=== PATIENT | female | born 1985 | race American Indian/Alaskan Native ===

== ENCOUNTER 2019-04-21 00:05 | Emergency (ER) | payer SELFPAY ==
[2019-04-21 00:30] VITALS: BP 118/70
[2019-04-21] MEDS ORDERED: NORCO 5/325 PO ONE (01:04)
[2019-04-21] MEDS ORDERED: IBUPROFEN PO ONE (01:04)
--- NOTE | 2019-04-21 01:16 | Emergency Department Report ---
HPI - General Chief Complaint: Sore Throat Time Seen by Provider: 04/21/19 00:56 - HPI HPI: Room 45 The patient is a 32-year-old female presenting with a chief complaint sore throat and cough. The patient says she awakened this morning with a headache sore throat and a dry cough. She states as the day progressed, her symptoms worsened. The patient states her cough is occasionally productive of some blood mixed with sputum. Patient states she has not had a fever she has midline back pain in addition to her sore throat. Patient denies dysuria or hematuria. Patient denies sick contacts. Patient gives her pain score of 9/10 ED Past Medical Hx - Past Medical History Previous Medical History?: Yes Hx Asthma: Yes - Surgical History Past Surgical History?: No - Family History Family history: no significant - Social History Smoking Status: Unknown if ever smoked Substance Use Type: None - Medications Home Medications: Home Medications Medication Instructions Recorded Confirmed Last Taken Type Amoxicillin [Amoxicillin TAB] 875 mg PO BID #14 tablet 04/21/19 Unknown Rx Benzonatate [Tessalon Perles] 100 mg PO Q8HR #30 capsule 04/21/19 Unknown Rx Ibuprofen [Motrin 800 MG tab] 800 mg PO Q8HR PRN #20 tablet 04/21/19 Unknown Rx traMADol [Ultram] 50 mg PO Q6HR PRN #10 tablet 04/21/19 Unknown Rx ED Review of Systems ROS: Stated complaint: SORE THROAT/BACK PAIN Other details as noted in HPI Constitutional: denies: fever Eyes: denies: eye pain ENT: throat pain Respiratory: cough Cardiovascular: denies: chest pain Endocrine: no symptoms reported Gastrointestinal: denies: abdominal pain Genitourinary: denies: dysuria, hematuria Musculoskeletal: back pain Neurological: denies: headache Physical Exam - Physical Exam Vital Signs: Vital Signs 04/21/19 00:28 Temperature 99.2 F Pulse Rate 100 H Respiratory 16 Rate Blood Pressure 118/70 O2 Sat by Pulse 100 Oximetry Physical Exam: GENERAL: The patient is well-developed well-nourished female lying on stretcher not appearing to be in acute distress. [] HEENT: Normocephalic. Atraumatic. Extraocular motions are intact. Patient has moist mucous membranes. Tonsillar crypts seen bilaterally, no exudate seen. Uvula midline NECK: Supple. No meningitic signs are noted. There is no nuchal rigidity CHEST/LUNGS: Clear to auscultation. There is no respiratory distress noted. HEART/CARDIOVASCULAR: Regular. There is no tachycardia. There is no gallop rub or murmur. ABDOMEN: Abdomen is soft, nontender. Patient has normal bowel sounds. There is no abdominal distention. SKIN: There is no rash. There is no edema. There is no diaphoresis. NEURO: The patient is awake, alert, and oriented. The patient is cooperative. The patient has normal speech MUSCULOSKELETAL: There is no evidence of acute injury. ED Course Vital Signs 04/21/19 00:28 Temperature 99.2 F Pulse Rate 100 H Respiratory 16 Rate Blood Pressure 118/70 O2 Sat by Pulse 100 Oximetry ED Medical Decision Making - Radiology Data Radiology results: image reviewed (chest x-ray, lateral soft tissue neck x-ray) interpreted by me: Chest x-ray-no focal infiltrate, no pneumothorax Lateral soft tissue neck x-ray-no prevertebral swelling. No evidence of epig lottitis - Differential Diagnosis bronchitis, pharyngitis, Critical care attestation.: If time is entered above; I have spent that time in minutes in the direct care of this critically ill patient, excluding procedure time. ED Disposition Clinical Impression: Acute bronchitis Disposition: DC-01 TO HOME OR SELFCARE Is pt being admited?: No Does the pt Need Aspirin: No Condition: Stable Instructions: Acute Bronchitis (ED) Prescriptions: Amoxicillin [Amoxicillin TAB] 875 mg PO BID #14 tablet Ibuprofen [Motrin 800 MG tab] 800 mg PO Q8HR PRN #20 tablet PRN Reason: Pain, Moderate (4-6) Benzonatate [Tessalon Perles] 100 mg PO Q8HR #30 capsule traMADol [Ultram] 50 mg PO Q6HR PRN #10 tablet PRN Reason: Pain Referrals: PRIMARY CARE, [Primary Care Provider] - 3-5 Days Time of Disposition: 02:00
--- NOTE | 2019-04-21 02:05 | XRay Report ---
SOFT TISSUE NECK, AP AND LATERAL VIEWS 04/21/2019 INDICATION / CLINICAL INFORMATION: sore throat. COMPARISON: None available. FINDINGS: No prevertebral soft tissue swelling. No abnormal subcutaneous gas collections. The epiglottic contour is normal. Signer Name: Brian Park MD Signed: 04/21/2019 2:01 AM Workstation Name: [id number]
--- NOTE | 2019-04-21 02:06 | XRay Report ---
CHEST 2 VIEWS INDICATION / CLINICAL INFORMATION: cough with occasional hemoptysis. COMPARISON: None available. FINDINGS: SUPPORT DEVICES: None. HEART / MEDIASTINUM: No significant abnormality. LUNGS / PLEURA: No significant pulmonary or pleural abnormality. No pneumothorax. ADDITIONAL FINDINGS: No significant additional findings. IMPRESSION: 1. No acute findings. Signer Name: Brian Park MD Signed: 04/21/2019 2:02 AM Workstation Name: [id number]
== END 2019-04-21 02:24 | disposition home or self-care (01) ==
LOC: ED 00:05
DX: J20.9 Acute bronchitis, unspecified (principal); J45.909 Unspecified asthma, uncomplicated; Z91.018 Allergy to other foods; Z79.899 Other long term (current) drug therapy
CPT/HCPCS: 70360; 71046; 99284

== ENCOUNTER 2020-06-19 17:21 | Emergency (ER) | payer SELFPAY ==
[2020-06-19 18:30] VITALS: BP 120/74
--- NOTE | 2020-06-19 19:01 | Event Note ---
ED Screening Note ED Screening Note: lower abd pain that began earlier today no dysuria no dark urine no dark odor +dysuria +nausea no v/d +burping/gas normal BM yesterday no vaginal discharge or irritation PMHx none no allergies to meds LNMP: 06/07/2020 This initial assessment/diagnostic orders/clinical plan/treatment(s) is/are subject to change based on patients health status, clinical progression and re- assessment by fellow clinical providers in the ED. Further treatment and workup at subsequent clinical providers discretion. Patient/guardian urged not to elope from the ED as their condition may be serious if not clinically assessed and managed. Initial orders include: ua, urine preg
--- NOTE | 2020-06-19 20:56 | Emergency Department Report ---
ED General Adult HPI - General Chief complaint: Abdominal Pain Stated complaint: ABD PAIN/RT SIDE OF FACE HURTS Time Seen by Provider: 06/19/20 18:59 Source: patient Mode of arrival: Ambulatory Limitations: No Limitations - History of Present Illness Initial comments: 35-year-old -[place] female patient presents with complaints of lower abdominal pain that started last night. She describes the pain as sharp and cramping and rates her current pain is 8/10 in severity. She denies any dysuria/hematuria, nausea/vomiting/diarrhea/constipation, fever/chills/sweats, vaginal bleeding, dyspareunia, or vaginal discharge. Patient does admit to urinary frequency. LMP was 05/30/2020 per patient. She admits to history of ovarian cyst. She reports ibuprofen does help with the pain temporarily. - Related Data Previous Rx's Medication Instructions Recorded Last Taken Type Amoxicillin [Amoxicillin TAB] 875 mg PO BID #14 tablet 04/21/19 Unknown Rx Benzonatate [Tessalon Perles] 100 mg PO Q8HR #30 capsule 04/21/19 Unknown Rx traMADoL [Ultram] 50 mg PO Q6HR PRN #10 tablet 04/21/19 Unknown Rx Ibuprofen [Motrin 800 MG tab] 800 mg PO Q8HR PRN #30 tablet 03/21/20 Unknown Rx Lidocaine Viscous 2% 10 ml PO Q4H PRN #120 ml 03/21/20 Unknown Rx Penicillin V Potassium 500 mg PO Q6H #40 tablet 03/21/20 Unknown Rx predniSONE [Deltasone] 40 mg PO QDAY #10 tab 03/21/20 Unknown Rx Naproxen [Naprosyn TAB] 500 mg PO BID PRN #14 tablet 06/19/20 Unknown Rx Allergies Allergy/AdvReac Type Severity Reaction Status Date / Time coconut Allergy Mild Angioedema Verified 06/19/20 18:28 sea salt Allergy Mild Angioedema Uncoded 04/21/19 00:31 ED Review of Systems ROS: Stated complaint: ABD PAIN/RT SIDE OF FACE HURTS Other details as noted in HPI Constitutional: denies: chills, diaphoresis, fever, malaise, weakness Respiratory: denies: cough, shortness of breath Cardiovascular: denies: chest pain Endocrine: denies: excessive sweating Gastrointestinal: abdominal pain. denies: nausea, vomiting, diarrhea, constipation, hematemesis, melena, hematochezia Genitourinary: frequency. denies: urgency, dysuria, hematuria, discharge, abnormal menses, dyspareunia Musculoskeletal: denies: back pain Skin: denies: rash, lesions, change in color Hematological/Lymphatic: denies: swollen glands ED Past Medical Hx - Past Medical History Hx Asthma: Yes - Social History Smoking Status: Never Smoker - Medications Home Medications: Home Medications Medication Instructions Recorded Confirmed Last Taken Type Amoxicillin [Amoxicillin TAB] 875 mg PO BID #14 tablet 04/21/19 Unknown Rx Benzonatate [Tessalon Perles] 100 mg PO Q8HR #30 capsule 04/21/19 Unknown Rx traMADoL [Ultram] 50 mg PO Q6HR PRN #10 tablet 04/21/19 Unknown Rx Ibuprofen [Motrin 800 MG tab] 800 mg PO Q8HR PRN #30 tablet 03/21/20 Unknown Rx Lidocaine Viscous 2% 10 ml PO Q4H PRN #120 ml 03/21/20 Unknown Rx Penicillin V Potassium 500 mg PO Q6H #40 tablet 03/21/20 Unknown Rx predniSONE [Deltasone] 40 mg PO QDAY #10 tab 03/21/20 Unknown Rx Naproxen [Naprosyn TAB] 500 mg PO BID PRN #14 tablet 06/19/20 Unknown Rx ED Physical Exam - General Limitations: No Limitations General appearance: alert, in no apparent distress - Head Head exam: Present: atraumatic, normocephalic - Eye Eye exam: Present: normal appearance. Absent: scleral icterus - Neck Neck exam: Present: normal inspection - Respiratory Respiratory exam: Absent: respiratory distress - Cardiovascular Cardiovascular Exam: Present: regular rate - GI/Abdominal GI/Abdominal exam: Present: soft, normal bowel sounds. Absent: distended, tenderness, guarding, rebound, rigid - Extremities Exam Extremities exam: Present: normal inspection - Back Exam Back exam: Present: normal inspection - Neurological Exam Neurological exam: Present: alert, oriented X3, normal gait - Psychiatric Psychiatric exam: Present: normal affect, normal mood - Skin Skin exam: Present: warm, dry, intact, normal color. Absent: rash ED Course Vital Signs 06/19/20 18:27 Temperature 98.4 F Pulse Rate 75 Respiratory 20 Rate Blood Pressure 120/74 O2 Sat by Pulse 100 Oximetry ED Medical Decision Making - Medical Decision Making 35-year-old -[place] female patient presents with complaints of lower abdominal pain that started last night. She describes the pain as sharp and cramping and rates her current pain is 8/10 in severity. She denies any dysuria/hematuria, nausea/vomiting/diarrhea/constipation, fever/chills/sweats, vaginal bleeding, dyspareunia, or vaginal discharge. Patient does admit to urinary frequency. LMP was 05/30/2020 per patient. She admits to history of ovarian cyst. She reports ibuprofen does help with the pain temporarily. No abdominal tenderness to palpation noted on exam. UA is normal and is negative. Her vitals are normal. She is well-appearing. Suspect possible mittelschmerz. She is stable for discharge home and follow-up with primary care in 2 to 3 days. Discussed signs and symptoms that should prompt immediate ret urn to the emergency department in detail with patient who verbalizes understanding peer Critical care attestation.: If time is entered above; I have spent that time in minutes in the direct care of this critically ill patient, excluding procedure time. ED Disposition Clinical Impression: Lower abdominal pain Disposition: DC-01 TO HOME OR SELFCARE Is pt being admited?: No Condition: Stable Instructions: Abdominal Pain (ED), Abdominal Pain, Adult, Mittelschmerz, Krka-ll-Eccl Prescriptions: Naproxen [Naprosyn TAB] 500 mg PO BID PRN #14 tablet PRN Reason: pain Referrals: PRIMARY CARE, [Primary Care Provider] - 2-3 Days
[2020-06-19 21:16] LABS: HCG Qualitative,Urine Negative (Negative)
[2020-06-19 21:23] LABS: Bilirubin,Urine NEG (Negative); Blood,Urine NEG (Negative); Color,Urine Yellow (Yellow); Mucus,Urine FEW /HPF; Protein,Urine <15 mg/dL mg/dL (Negative); WBC,Urine < 1.0 /HPF (0.0-6.0)
[2020-06-19] MEDS ORDERED: NAPROXEN 500 MG TAB PO ONE (22:15)
== END 2020-06-19 22:15 | disposition home or self-care (01) ==
LOC: ED 17:21
DX: R10.30 Lower abdominal pain, unspecified (principal)
CPT/HCPCS: 81001; 81025; 99283

== ENCOUNTER 2020-09-01 12:15 | Emergency (ER) | payer SELFPAY ==
[2020-09-01 12:29] VITALS: BP 107/70
[2020-09-01] MEDS ORDERED: IPRATROPIUM/ALBUTEROL SULFATE 3 ML AMPUL.NEB IH ONE (12:36)
[2020-09-01] MEDS ORDERED: predniSONE 20 MG TAB PO ONE (12:36)
[2020-09-01] MEDS ORDERED: IBUPROFEN 600 MG TAB PO ONE (12:37)
--- NOTE | 2020-09-01 12:37 | Emergency Department Report ---
ED Asthma HPI - General Chief Complaint: Adult Asthma Stated Complaint: ASTHMA Time Seen by Provider: 09/01/20 12:30 Source: patient Mode of arrival: Ambulatory Limitations: No Limitations - History of Present Illness Initial Comments: 35-year-old female with a past medical history of asthma presents to the ER today with complaints of asthma attack. Patient states that she was at work when it started. She states that it occurred just prior to arrival. 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 She states that she used her albuterol inhaler twice but without relief of her symptoms. She denies any associated URI symptoms, fever, chills, nausea, vomiting abdominal pain, lower extremity swelling or any other symptoms at this time. She denies any prior hospitalizations secondary to her asthma. MD Complaint: "asthma attack" -: Sudden - Related Data Previous Rx's Medication Instructions Recorded Last Taken Type ALBUTEROL NEB's [Proventil 0.083% 2.5 mg IH Q4HR PRN #30 neb 09/01/20 Unknown Rx NEBS] Ketorolac [Toradol] 10 mg PO Q6H PRN #20 tablet 09/01/20 Unknown Rx predniSONE [Deltasone] 60 mg PO QDAY #12 tab 09/01/20 Unknown Rx Allergies Allergy/AdvReac Type Severity Reaction Status Date / Time coconut Allergy Mild Angioedema Verified 06/19/20 18:28 sea salt Allergy Mild Angioedema Uncoded 04/21/19 00:31 ED Review of Systems ROS: Stated complaint: ASTHMA Other details as noted in HPI Comment: All other systems reviewed and negative Constitutional: denies: chills, fever Eyes: denies: eye pain, eye discharge, vision change ENT: denies: ear pain, throat pain Respiratory: cough, shortness of breath, wheezing Cardiovascular: chest pain. denies: palpitations Endocrine: no symptoms reported Gastrointestinal: denies: abdominal pain, nausea, diarrhea Genitourinary: denies: urgency, dysuria, discharge Skin: denies: rash, lesions Neurological: denies: headache, weakness, paresthesias Psychiatric: denies: anxiety, depression Hematological/Lymphatic: denies: easy bleeding, easy bruising ED Past Medical Hx - Past Medical History Previous Medical History?: Yes Hx Asthma: Yes - Social History Smoking Status: Never Smoker Substance Use Type: None - Medications Home Medications: Home Medications Medication Instructions Recorded Confirmed Last Taken Type ALBUTEROL NEB's [Proventil 0.083% 2.5 mg IH Q4HR PRN #30 neb 09/01/20 Unknown Rx NEBS] Ketorolac [Toradol] 10 mg PO Q6H PRN #20 tablet 09/01/20 Unknown Rx predniSONE [Deltasone] 60 mg PO QDAY #12 tab 09/01/20 Unknown Rx ED Physical Exam - General Limitations: No Limitations General appearance: alert, in no apparent distress - Head Head exam: Present: atraumatic, normocephalic, normal inspection - Eye Eye exam: Present: normal appearance, PERRL, EOMI Pupils: Present: normal accommodation - Neck Neck exam: Present: normal inspection - Respiratory Respiratory exam: Present: normal lung sounds bilaterally, chest wall tenderness (Left upper chest). Absent: respiratory distress, wheezes, rales, rhonchi, decreased breath sounds - Cardiovascular Cardiovascular Exam: Present: regular rate, normal rhythm, normal heart sounds - GI/Abdominal GI/Abdominal exam: Present: soft. Absent: distended, tenderness, guarding, rebound - Neurological Exam Neurological exam: Present: alert, oriented X3, CN II-XII intact, normal gait - Psychiatric Psychiatric exam: Present: normal affect, normal mood - Skin Skin exam: Present: intact ED Course Vital Signs 09/01/20 09/01/20 12:27 13:09 Temperature 98.0 F Pulse Rate 69 Respiratory 18 20 Rate Blood Pressure 107/70 O2 Sat by Pulse 100 Oximetry ED Medical Decision Making - Radiology Data Radiology results: report reviewed Referring Physician:EDWIN BROUSSARDPatient Name:ADITHYA SANDOVALPatient ID:[id number] of :[id number]:FemaleAccession:[id number] Date:[id number] Status:Finalized Findings [facility] [address] [place] [address] XRay Report Signed Patient: ADITHYA SANDOVAL MR#: [id number] : 1985 Acct:[id number] Age/Sex: 35 / F ADM Date: 09/01/20 Loc: ED Attending Dr: Ordering Physician: EDWIN BROUSSARD Date of Service: 09/01/20 Procedure(s): XR chest routine 2V Accession Number(s): [id number] cc: EDWIN BROUSSARD Fluoro Time In Minutes: CHEST 2 VIEWS INDICATION / CLINICAL INFORMATION: CP/SOB/asthma. COMPARISON: None available. FINDINGS: SUPPORT DEVICES: None. HEART / MEDIASTINUM: No significant abnormality. LUNGS / PLEURA: No significant pulmonary or pleural abnormality. No pneumothorax. ADDITIONAL FINDINGS: No significant additional findings. IMPRESSION: 1. No acute findings. Signer Name: Kit Herman MD Signed: 09/01/2020 1:12 PM Workstation Name: [email or web address] Transcribed By: JAKE Dictated By: KATIA HERMAN MD Electronically Authenticated By: KATIA HERMAN MD Signed Date/Time: 09/01/20 131 DD/ 11 TD/TT: - Medical Decision Making 1453: Patient currently resting comfortably, and is on her phone. She does not appear to be in any acute pain or respiratory distress. Chest x-ray shows nothing acute. She is not hypoxic or tachypneic and her remaining vital signs were normal. She is not toxic or ill-appearing and appears hydrated. She is neurologically intact. At this time there is no indication for any further work-up, admission or emergent consult. Patient is capable of getting a friend's nebulizer machine, she will be given prescriptions for the nebulizer machine as well as a tubing. Recommend that she uses that every 4 hours as needed. She will also be discharged home on some prednisone for few more days. Patient expressed understanding of instructions and agree with plan. She understands to return to the ER if her symptoms worsens or changes in any way. Critical care attestation.: If time is entered above; I have spent that time in minutes in the direct care of this critically ill patient, excluding procedure time. ED Disposition Clinical Impression: Asthma Disposition: DC-01 TO HOME OR SELFCARE Is pt being admited?: No Does the pt Need Aspirin: No Condition: Stable Instructions: Asthma, Adult, Asthma (ED) Additional Instructions: Use the albuterol nebulizer machine every 4 hours as needed especially when you are at home. You can continue to use your MDI if you go out, and continue to use 2 puffs every 4-6 hours. Take the prednisone as prescribed. Follow-up closely with your primary care doctor. Return to the ER if your symptoms worsens or changes in any way Prescriptions: predniSONE [Deltasone] 60 mg PO QDAY #12 tab ALBUTEROL NEB's [Proventil 0.083% NEBS] 2.5 mg IH Q4HR PRN #30 neb PRN Reason: SOB/Wheezin Ketorolac [Toradol] 10 mg PO Q6H PRN #20 tablet PRN Reason: Pain Referrals: JANET DURAN MD [Staff Physician] - 3-5 Days Forms: Work/School Release Form(ED) Time of Disposition: 14:48
--- NOTE | 2020-09-01 13:17 | XRay Report ---
CHEST 2 VIEWS INDICATION / CLINICAL INFORMATION: CP/SOB/asthma. COMPARISON: None available. FINDINGS: SUPPORT DEVICES: None. HEART / MEDIASTINUM: No significant abnormality. LUNGS / PLEURA: No significant pulmonary or pleural abnormality. No pneumothorax. ADDITIONAL FINDINGS: No significant additional findings. IMPRESSION: 1. No acute findings. Signer Name: Kit Herman MD Signed: 09/01/2020 1:12 PM Workstation Name: [email or web address]
== END 2020-09-01 15:14 | disposition home or self-care (01) ==
LOC: ED 12:15
DX: J45.909 Unspecified asthma, uncomplicated (principal); Z79.899 Other long term (current) drug therapy; Z91.018 Allergy to other foods
CPT/HCPCS: 71046; 99283; J7512

== ENCOUNTER 2020-11-12 10:13 | Emergency (ER) | payer SELFPAY ==
--- NOTE | 2020-11-12 11:35 | Emergency Department Report ---
ED Shortness of Breath HPI - General Stated Complaint: RESPIRATORY DISTRESS Time Seen by Provider: 11/12/20 11:28 - History of Present Illness Initial Comments: 35-year-old female, history of asthma, presents to ED with wheezing and shortness of breath. Patient states she was at work when she began having some difficulty breathing along with wheezing. Patient used her inhaler but states this did not help. EMS was called. Patient was given nebulizer treatment and Decadron 20 mg IV. Patient states she is still having some chest tightness, feels as if she needs another treatment. MD Complaint: "asthma attack" -: hour(s) (1.5) Severity: moderate Consistency: constant Improves With: bronchodilators Worsens With: exertion Known History Of: asthma Associated Symptoms: chest pain Treatments Prior to Arrival: bronchodilator, other (Decadron) - Related Data Home Oxygen Therapy: No Previous Rx's Medication Instructions Recorded Last Taken Type ALBUTEROL NEB's [Proventil 0.083% 2.5 mg IH Q4HR PRN #30 neb 09/01/20 Unknown Rx NEBS] Ketorolac [Toradol] 10 mg PO Q6H PRN #20 tablet 09/01/20 Unknown Rx predniSONE [Deltasone] 60 mg PO QDAY #12 tab 09/01/20 Unknown Rx Albuterol Sulfate [Proventil Hfa] 2 puff IH Q4HR PRN #1 hfa.aer.ad 11/12/20 Unknown Rx predniSONE [Deltasone] 50 mg PO QDAY #5 tab 11/12/20 Unknown Rx Allergies Allergy/AdvReac Type Severity Reaction Status Date / Time coconut Allergy Mild Angioedema Verified 06/19/20 18:28 sea salt Allergy Mild Angioedema Uncoded 04/21/19 00:31 ED Review of Systems ROS: Stated complaint: RESPIRATORY DISTRESS Other details as noted in HPI Comment: All other systems reviewed and negative Constitutional: denies: chills, fever Respiratory: shortness of breath, wheezing Cardiovascular: chest pain ED Past Medical Hx - Past Medical History Hx Asthma: Yes - Social History Smoking Status: Never Smoker Substance Use Type: None - Medications Home Medications: Home Medications Medication Instructions Recorded Confirmed Last Taken Type ALBUTEROL NEB's [Proventil 0.083% 2.5 mg IH Q4HR PRN #30 neb 02/22/21 Unknown Rx NEBS] Ketorolac [Toradol] 10 mg PO Q6H PRN #20 tablet 09/01/20 Unknown Rx predniSONE [Deltasone] 60 mg PO QDAY #12 tab 09/01/20 Unknown Rx Albuterol Sulfate [Proventil Hfa] 2 puff IH Q4HR PRN #1 hfa.aer.ad 11/12/20 Unknown Rx predniSONE [Deltasone] 50 mg PO QDAY #5 tab 11/12/20 Unknown Rx ED Physical Exam - General General appearance: alert, in no apparent distress - Head Head exam: Present: atraumatic, normocephalic - Eye Eye exam: Present: normal appearance - ENT ENT exam: Present: mucous membranes moist - Neck Neck exam: Present: normal inspection - Respiratory Respiratory exam: Present: wheezes (Faint). Absent: respiratory distress - Cardiovascular Cardiovascular Exam: Present: regular rate, normal rhythm - GI/Abdominal GI/Abdominal exam: Present: soft. Absent: distended, tenderness - Extremities Exam Extremities exam: Present: normal inspection - Neurological Exam Neurological exam: Present: alert, oriented X3 - Psychiatric Psychiatric exam: Present: normal affect, normal mood - Skin Skin exam: Present: warm, dry, intact, normal color ED Course Vital Signs 11/12/20 11/12/20 11/12/20 10:15 11:00 12:00 Temperature 98.2 F Pulse Rate 12 L 75 78 Pulse Rate [ Anterior Bilateral Throughout] Respiratory 12 15 19 Rate Respiratory Rate [Anterior Bilateral Throughout] Blood Pressure 116/75 115/63 105/52 Blood Pressure 116/75 [Left] O2 Sat by Pulse 100 100 100 Oximetry 11/12/20 11/12/20 11/12/20 13:09 13:53 13:54 Temperature Pulse Rate 80 Pulse Rate [ 70 Anterior Bilateral Throughout] Respiratory 16 18 Rate Respiratory 24 Rate [Anterior Bilateral Throughout] Blood Pressure Blood Pressure 102/76 [Left] O2 Sat by Pulse 100 Oximetry ED Medical Decision Making - EKG Data -: EKG Interpreted by Me EKG shows normal: sinus rhythm, axis, intervals, QRS complexes, ST-T waves Rate: normal - EKG Data Interpretation: no acute changes - Radiology Data Radiology results: report reviewed, image reviewed - Medical Decision Making 35-year-old female presents to ED with acute asthma exacerbation. Patient has received Decadron 20 mg from EMS, additional nebulizer treatments here in the ED. She reported some chest tightness secondary to her asthma. EKG is normal. Chest x-ray is normal. Patient is feeling much better at this time, she is in no respiratory distress, O2 sats are normal. Patient will be discharged with prescriptions. Outpatient follow-up advised, return precautions given. - Differential Diagnosis Asthma, pneumonia, ACS Critical care attestation.: If time is entered above; I have spent that time in minutes in the direct care of this critically ill patient, excluding procedure time. ED Disposition Clinical Impression: Acute asthma exacerbation Disposition: DC-01 TO HOME OR SELFCARE Is pt being admited?: No Condition: Stable Instructions: Asthma Attack Prescriptions: predniSONE [Deltasone] 50 mg PO QDAY #5 tab Albuterol Sulfate [Proventil Hfa] 2 puff IH Q4HR PRN #1 hfa.aer.ad PRN Reason: Wheezing Referrals: PRIMARY CARE, [Primary Care Provider] - 3-5 Days [facility] [Provider Group] - 3-5 Days Time of Disposition: 13:54
[2020-11-12] MEDS ORDERED: IPRATROPIUM 0.02% NEBU 2.5 ML IH ONE (11:45)
[2020-11-12] MEDS ORDERED: ALBUTEROL 2.5 MG/3 ML NEBU IH ONE (11:45)
--- NOTE | 2020-11-12 12:32 | XRay Report ---
CHEST 1 VIEW 11/12/2020 11:24 AM INDICATION / CLINICAL INFORMATION: sob. COMPARISON: Chest x-ray 09/01/2020 FINDINGS: SUPPORT DEVICES: None. HEART / MEDIASTINUM: No significant abnormality. LUNGS / PLEURA: No significant pulmonary or pleural abnormality. No pneumothorax. ADDITIONAL FINDINGS: No significant additional findings. IMPRESSION: 1. No acute findings. Signer Name: Tylor Soares MD Signed: 11/12/2020 12:28 PM Workstation Name: [id number]
[2020-11-12] MEDS ORDERED: KETOROLAC 30 MG/1 ML INJ IV ONE (13:33)
[2020-11-12 13:56] VITALS: BP 102/76
--- NOTE | 2020-11-13 17:50 | Electrocardiograph Report ---
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
== END 2020-11-12 14:50 | disposition home or self-care (01) ==
LOC: ED 10:13
DX: J45.901 Unspecified asthma with (acute) exacerbation (principal); Z79.899 Other long term (current) drug therapy; Z91.018 Allergy to other foods
CPT/HCPCS: 71045; 93005; 94640; 96374; 99284; J1885; 94644

== ENCOUNTER 2021-11-12 11:21 | Emergency (ER) | payer SELFPAY ==
[2021-11-12 11:36] VITALS: BP 111/79
--- NOTE | 2021-11-12 18:01 | Emergency Department Report ---
- General Chief Complaint: Chest Pain Stated Complaint: CHEST PAIN/LEOBARDO Source: patient Mode of arrival: Ambulatory Limitations: No Limitations - History of Present Illness Initial Comments: 36-year-old female presents to the ED complaining headache ,stuffy nose, cough fullness to her ears intermittent x3 weeks. Patient states that she initially thought that it was her asthma that was flaring up and was taking coii-woo-cwgyyfe medication, she notes that the symptom was getting worse when she was awakened in the a.m. with a cough. She states that she feels as though she is dizzy after bending. Patient states that she had a similar symptom last year and was told that she had a sinus infection. Patient is alert and oriented x3. Patient denies any chest pain or shortness of breath at present. No acute distress .noted no ill appearance noted. Patient denies any fever or chills. MD Complaint: cough, nasal congestion, sinus pain Onset/Timin -: week(s) Severity: moderate Severity scale (0 -10): 8 Consistency: constant Improves With: nothing Worsens With: nothing Associated Symptoms: cough - Related Data Previous Rx's Medication Instructions Recorded Last Taken Type ALBUTEROL NEB's [Proventil 0.083% 2.5 mg IH Q4HR PRN #30 neb 09/01/20 Unknown Rx NEBS] Ketorolac [Toradol] 10 mg PO Q6H PRN #20 tablet 09/01/20 Unknown Rx predniSONE [Deltasone] 60 mg PO QDAY #12 tab 09/01/20 Unknown Rx Albuterol Sulfate [Proventil Hfa] 2 puff IH Q4HR PRN #1 hfa.aer.ad 11/12/20 Unknown Rx predniSONE [Deltasone] 50 mg PO QDAY #5 tab 11/12/20 Unknown Rx Amoxicillin/Potassium Clav 1 each PO BID 10 Days #20 tab 11/12/21 Unknown Rx [Augmentin 875-125 Tablet] Brompheniramine/Pseudoephed/Dm 5 ml PO BID 5 Days #118 ml 11/12/21 Unknown Rx [Bromfed Dm Cough Syrup] predniSONE [Deltasone] 50 mg PO QDAY #5 day 11/12/21 Unknown Rx Allergies Allergy/AdvReac Type Severity Reaction Status Date / Time coconut Allergy Mild Angioedema Verified 06/19/20 18:28 sea salt Allergy Mild Angioedema Uncoded 04/21/19 00:31 ED Review of Systems ROS: Stated complaint: CHEST PAIN/LEOBARDO Other details as noted in HPI Constitutional: denies: chills, fever Eyes: denies: eye pain, eye discharge, vision change ENT: ear pain. denies: throat pain Respiratory: cough. denies: shortness of breath, wheezing Cardiovascular: denies: chest pain, palpitations Endocrine: no symptoms reported Gastrointestinal: denies: abdominal pain, nausea, diarrhea Genitourinary: denies: urgency, dysuria, discharge Musculoskeletal: denies: back pain, joint swelling, arthralgia Skin: denies: rash, lesions Neurological: denies: headache, weakness, paresthesias Psychiatric: denies: anxiety, depression Hematological/Lymphatic: denies: easy bleeding, easy bruising ED Past Medical Hx - Past Medical History Hx Asthma: Yes - Social History Smoking Status: Never Smoker Substance Use Type: None - Medications Home Medications: Home Medications Medication Instructions Recorded Confirmed Last Taken Type ALBUTEROL NEB's [Proventil 0.083% 2.5 mg IH Q4HR PRN #30 neb 09/01/20 Unknown Rx NEBS] Ketorolac [Toradol] 10 mg PO Q6H PRN #20 tablet 09/01/20 Unknown Rx predniSONE [Deltasone] 60 mg PO QDAY #12 tab 09/01/20 Unknown Rx Albuterol Sulfate [Proventil Hfa] 2 puff IH Q4HR PRN #1 hfa.aer.ad 11/12/20 Unknown Rx predniSONE [Deltasone] 50 mg PO QDAY #5 tab 11/12/20 Unknown Rx Amoxicillin/Potassium Clav 1 each PO BID 10 Days #20 tab 11/12/21 Unknown Rx [Augmentin 875-125 Tablet] Brompheniramine/Pseudoephed/Dm 5 ml PO BID 5 Days #118 ml 11/12/21 Unknown Rx [Bromfed Dm Cough Syrup] predniSONE [Deltasone] 50 mg PO QDAY #5 day 11/12/21 Unknown Rx ED Physical Exam - General Limitations: No Limitations General appearance: alert, in no apparent distress - Head Head exam: Present: atraumatic, normocephalic - Eye Eye exam: Present: normal appearance - ENT ENT exam: Present: mucous membranes moist - Expanded ENT Exam Expanded TM/Canal exam: Effusion: Right TM, Left TM, Mastoid Tenderness: Right TM, Left TM Mouth exam: Absent: normal external inspection, drooling, trismus Throat exam: Positive: normal inspection, other (Postnasal drip noted) - Neck Neck exam: Present: normal inspection - Respiratory Respiratory exam: Present: normal lung sounds bilaterally. Absent: respiratory distress - Cardiovascular Cardiovascular Exam: Present: regular rate, normal rhythm. Absent: systolic murmur, diastolic murmur, rubs, gallop - GI/Abdominal GI/Abdominal exam: Present: soft, normal bowel sounds - Extremities Exam Extremities exam: Present: normal inspection - Back Exam Back exam: Present: normal inspection - Neurological Exam Neurological exam: Present: alert, oriented X3 - Psychiatric Psychiatric exam: Present: normal affect, normal mood - Skin Skin exam: Present: warm, dry, intact, normal color. Absent: rash ED Course Vital Signs 11/12/21 11:32 Temperature 98.8 F Pulse Rate 80 Respiratory 18 Rate Blood Pressure 111/79 [Right] O2 Sat by Pulse 99 Oximetry ED Medical Decision Making - Medical Decision Making 36-year-old female presents to the ED complaining headache ,stuffy nose, cough fullness to her ears intermittent x3 weeks. Patient states that she initially thought her asthma was flaring up and was taking [id number] medication, she notes that the symptom was getting worse when she was awakened in the a.m. with a cough. She states that she feels as though she is dizzy after bending. Patient states that she had a similar symptom last year and was told that she had a sinus infection. Patient is alert and oriented x3. Patient denies any chest pain or shortness of breath at present. No acute distress .noted no ill appearance noted. Patient denies any fever or chills. Physical examination patient has tenderness upon palpitation noted to the frontal cavity, postnasal drip noted, mild ear effusion noted. Rechecked the patient is resting quietly quietly and comfortable and feeling better. I discussed the results of diagnostic study, my clinical impression and the plan for further treatment with the patient. Patient agrees with plan and discharge at this present time. All question addressed. I have given the patient instruction regarding a diagnosis ,expectation ,follow- up and return precaution. I explained to the patient that emergent condition may arise and to return to the ED for new worsen and any new persisting condition. I have explained the importance of following up with the primary care physician or referral physician listed below has instructed. The patient verbalized und erstanding of discharge instruction. Critical care attestation.: If time is entered above; I have spent that time in minutes in the direct care of this critically ill patient, excluding procedure time. ED Disposition Clinical Impression: Acute sinusitis Qualifiers: Sinusitis location: frontal Recurrence: non-recurrent Qualified Code(s): J01.10 - Acute frontal sinusitis, unspecified Disposition: HOME / SELF CARE / HOMELESS Is pt being admited?: No Does the pt Need Aspirin: No Condition: Stable Instructions: Sinusitis, Adult, [id number], How to Perform a Sinus Rinse Additional Instructions: Take medication as prescribed return to the ED for any worsening symptom Prescriptions: Amoxicillin/Potassium Clav [Augmentin 875-125 Tablet] 1 each PO BID 10 Days #20 tab Brompheniramine/Pseudoephed/Dm [Bromfed Dm Cough Syrup] 5 ml PO BID 5 Days #118 ml predniSONE [Deltasone] 50 mg PO QDAY #5 day Referrals: [facility] [Provider Group] - 3-5 Days Forms: Work/School Release Form(ED) Time of Disposition: 18:05
--- NOTE | 2021-11-13 10:11 | Electrocardiograph Report ---
[facility] Test Date: 2021-11-12 Test Time: 11:37:13 Pat Name: ADITHYA SANDOVAL Department: Room: Gender: F Software Build Engineer: AF : 1985 Requested By: ISRAEL PAK Order Number: [id number] Reading MD: Addy Brooks Measurements Intervals [place] Rate: 67 P: 52 [place]: 136 QRS: 72 QRSD: 79 T: 44 QT: 401 QTc: 426 Interpretive Statements Sinus rhythm Compared to ECG 11/12/2020 13:47:57 Atrial premature complex(es) no longer present Electronically Signed On 11-13-2021 10:10:48 EDT by Addy Brooks
== END 2021-11-12 18:48 | disposition home or self-care (01) ==
LOC: ED 11:21
DX: J30.9 Allergic rhinitis, unspecified (principal); Z91.02 Food additives allergy status; Z91.013 Allergy to seafood
CPT/HCPCS: 93005; 99282